=== PATIENT | male | born 1975 | race Caucasian/White ===

== ENCOUNTER 2019-03-15 09:05 | Emergency (ER) | payer OTHER ==
[2019-03-15] MEDS ORDERED: Pantoprazole 40 MG VIAL ONE (09:49)
--- NOTE | 2019-03-15 10:07 | RAD ---
Frontal radiograph chest 2 views of abdomen: 03/15/2019 COMPARISON: None HISTORY: Abdominal pain with nausea FINDINGS: Frontal radiograph chest demonstrates no pneumothorax, pleural fluid, focal consolidation, or alveolar edema. Heart and mediastinal contours appear within normal limits. Upright imaging demonstrates no free intraperitoneal air. The bowel gas pattern appears nonobstructed . No gas-filled dilated large or small bowel is evident. No air-fluid levels are seen on upright imaging. IMPRESSION: Frontal radiograph chest demonstrates no acute findings. No free intraperitoneal air or e vidence of small bowel obstruction seen.
[2019-03-15 10:09] LABS: #Basophils 0.1 thou/uL (0.0-0.2); #Eosinphils 0.3 thou/uL (0.0-0.7); #Lymphocytes 1.5 thou/uL (1.20-3.40); #Neutrophils 5.5 thou/uL (1.40-6.50); %Basophils 1.5 % (0.0-1.0); %Eosinophils 3.5 % (0.0-10.0); %Lymphocytes 17.9 % (21.0-51.0); %Monocytes 11.8 % (0.0-10.0); %Neutrophils 65.4 % (42.0-75.0); Hemoglobin 14.3 g/dL (14.0-18.0); Mean Corpuscular HGB CONC 32.2 g/dL (32.0-36.0); Mean Corpuscular Volume 86.8 fL (78.0-98.0); Mean Platelet Volume 8.9 fL (7.4-10.4); Platelet Count 219 thou/uL (130-400); RBC Distribution Width 12.4 % (11.5-14.5); White Blood Cell (WBC) Count 8.5 thou/uL (4.8-10.8)
[2019-03-15 10:11] LABS: INR-International Normal Ratio 0.9; PTT 29.6 SEC (22.9-36.1); Prothrombin Time 12.6 SEC (12.0-14.7)
[2019-03-15 10:19] LABS: ALT (SGPT) 56 U/L (8-55); AST (SGOT) 27 U/L (5-34); Albumin 4.5 g/dL (3.5-5.0); Alkaline Phosphatase 70 U/L (40-150); Anion Gap 14 mmol/L (10-20); BUN (Urea Nitrogen) 12 mg/dL (8.9-20.6); Bilirubin, Total 0.6 mg/dL (0.2-1.2); Calc. Creatinine Clearance 0 mL/min (70-130); Calcium 9.7 mg/dL (7.8-10.44); Carbon Dioxide 23 mmol/L (22-29); Chloride 106 mmol/L (98-107); Estimated GFR-MDRD Greater than 90; Globulin 2.7 g/dL (2.4-3.5); Glucose 101 mg/dL (70-105); Lipase 23 U/L (8-78); Potassium 4.1 mmol/L (3.5-5.1); Protein, Total 7.2 g/dL (6.0-8.3); Sodium 139 mmol/L (136-145)
== END 2019-03-15 10:45 | disposition home or self-care (01) ==
LOC: SCSER 09:05
DX: R10.9 Unspecified abdominal pain (principal); Z71.6 Tobacco abuse counseling
CPT/HCPCS: 74022; 80053; 82274; 83605; 83690; 84484; 85025; 85610; 85730; 86850; 86900; 86901; 93005; 96361; 96374; C9113

== ENCOUNTER 2021-08-02 10:57 | Outpatient (CLI) | payer OTHER ==
[2021-08-02 22:21] LABS: SARS-CoV-2 PCR by NAA Not Detected (NotDetected)
== END 2021-08-02 10:58 | disposition home or self-care (01) ==
LOC: LABBT 10:57
PROVIDERS: ATTEND Ophthalmology Retina Specialist
DX: Z01.812 Encounter for preprocedural laboratory examination (principal); H43.89 Other disorders of vitreous body; Z20.822 Contact with and (suspected) exposure to COVID-19
CPT/HCPCS: U0003; U0005